=== PATIENT | female | born 1995 | race Caucasian/White ===

== ENCOUNTER → 2022-11-05 14:04 | Outpatient (BNVA) | payer OTHER, SELFPAY | PROVIDERS: Visit Provider Physician Assistant | DX: S93.401A Sprain of unspecified ligament of right ankle, initial encounter (principal); X50.1XXA Overexertion from prolonged static or awkward postures, initial encounter | CPT/HCPCS: 99204 ==

== ENCOUNTER → 2022-11-07 15:58 | Outpatient (BNVA) | payer OTHER, SELFPAY | PROVIDERS: Visit Provider Physician Assistant | DX: S93.401A Sprain of unspecified ligament of right ankle, initial encounter (principal); X50.3XXA Overexertion from repetitive movements, initial encounter | CPT/HCPCS: 99213 ==

== ENCOUNTER → 2022-11-13 09:51 | Outpatient (BNVA) | payer OTHER, SELFPAY | PROVIDERS: Visit Provider Physician Assistant | DX: S93.401A Sprain of unspecified ligament of right ankle, initial encounter (principal); X50.1XXA Overexertion from prolonged static or awkward postures, initial encounter | CPT/HCPCS: 99214 ==

== ENCOUNTER → 2022-11-20 09:04 | Outpatient (BNVA) | payer OTHER, SELFPAY | PROVIDERS: Visit Provider Physician Assistant | DX: S93.401D Sprain of unspecified ligament of right ankle, subsequent encounter (principal); X50.1XXD Overexertion from prolonged static or awkward postures, subsequent encounter | CPT/HCPCS: 99213 ==

== ENCOUNTER → 2022-12-05 13:03 | Outpatient (BNVA) | payer OTHER, SELFPAY | PROVIDERS: Visit Provider Physician Assistant | DX: S93.401D Sprain of unspecified ligament of right ankle, subsequent encounter (principal); X50.1XXD Overexertion from prolonged static or awkward postures, subsequent encounter | CPT/HCPCS: 99215 ==

== ENCOUNTER → 2023-08-27 12:46 | Outpatient (BNVA) | payer OTHER, SELFPAY | PROVIDERS: Visit Provider Physician Assistant Medical | DX: S63.633A Sprain of interphalangeal joint of left middle finger, initial encounter (principal); X50.3XXA Overexertion from repetitive movements, initial encounter | CPT/HCPCS: 73140; 99204 ==

== ENCOUNTER → 2023-09-01 11:39 | Outpatient (BNVA) | payer OTHER, SELFPAY | PROVIDERS: Visit Provider Physician Assistant Medical | DX: S63.633A Sprain of interphalangeal joint of left middle finger, initial encounter (principal); X50.3XXA Overexertion from repetitive movements, initial encounter | CPT/HCPCS: 99213 ==

== ENCOUNTER → 2023-09-14 14:07 | Outpatient (BNVA) | payer OTHER, SELFPAY | PROVIDERS: Visit Provider Physician Assistant Medical | DX: S63.633D Sprain of interphalangeal joint of left middle finger, subsequent encounter (principal); S63.502D Unspecified sprain of left wrist, subsequent encounter; X50.3XXD Overexertion from repetitive movements, subsequent encounter | CPT/HCPCS: 99213 ==

== ENCOUNTER → 2023-09-28 13:59 | Outpatient (BNVA) | payer OTHER, SELFPAY | PROVIDERS: Visit Provider Physician Assistant Medical | DX: S63.633D Sprain of interphalangeal joint of left middle finger, subsequent encounter (principal); S63.502D Unspecified sprain of left wrist, subsequent encounter; X50.3XXD Overexertion from repetitive movements, subsequent encounter | CPT/HCPCS: 99213 ==

== ENCOUNTER 2023-09-28 15:30 | Outpatient (RCR) | payer OTHER, SELFPAY | END 2023-11-23 11:46 | disposition home or self-care (01) | LOC: HO.OT 15:30 | PROVIDERS: Visit Provider Physician Assistant Medical | DX: S63.613D Unspecified sprain of left middle finger, subsequent encounter (principal) | CPT/HCPCS: 97110; 97165; 97760 ==

== ENCOUNTER 2024-01-08 10:02 | Outpatient (AMB) | payer OTHER, SELFPAY ==
--- NOTE | 2024-01-08 10:17 | MHC.PC.OV ---
Vital Signs 01/08/24 10:26 Height 5 ft 9 in Weight 201 lb 6 oz BMI 29.7 BP 92/54 L Blood Pressure Location Lt brachial Position Sitting Respiration 16 Pulse 101 H Pulse Source Pulse Oximeter Temp 94.5 F L Temp Source Temporal Artery Scan Pulse Oximetry (%) 99 Oxygen Delivery Method Room Air Intake Visit Reasons: Est Care / Depression Intake Note: establish care Is last menstrual period known: Yes Last menstrual period: 12/24/23 Post menopausal: No Patient : No Allergies Penicillins Allergy (Intermediate, Verified 01/08/24 10:20) Anaphylaxis Medication List - Last Reconciled 01/08/24 by Randell Peterson MD amitriptyline 50 mg PO BEDTIME chlordiazepoxide-clidinium 5-2.5 mg 2 caps PO BID esomeprazole magnesium (Nexium) 20 mg PO DAILY ibuprofen 800 mg PO TID L norgest/e.estradiol-e.estrad 0.15 mg-30 mcg (84)/10 mcg (7) (Simpesse) 1 tab PO DAILY simethicone (Gas-X Extra Strength) 250 mg PO BID PRN Tobacco use date assessed: 01/08/24 Dental Screening Dental Screen Date: 01/08/24 Did you have a dental visit in the last 12 months?: Yes Did you have a dental problem in the last 6 months where you did not have access to dental care?: No Was dental information given to patient?: Patient has dentist HPI Est Care / Depression HPI Details New Patient? ?? Prior PCP:?Dr Jami Cheng at [facility] Last office visit/CPE:? Last Summer Acute issue(s):? IBS Anxiety R Knee injury and in Brace. Has f/u w/ ortho in [place]. ?? PMHx:? Anxiety. Mesenteric Lymphadenitis & abd pain. IBS sees Dr Jordan. Endometriosis - Needs referral. SurgHx:?Tonsils. [place] teeth FHx:? Mom: GI problems, Thyroid problems. Thyroid CA Dad: DM2, a-Fib. SocHx:? Nonsmoker, EtOH: None. 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 1. Little interest or pleasure in doing things: several days 2. Feeling down, depressed, or hopeless: several days 3. Trouble falling or staying asleep, or sleeping too much: several days 4. Feeling tired or having little energy: several days 5. Poor appetite or overeating: several days 6. Feeling bad about yourself - or that you are a failure or have let yourself or your family down: several days 7. Trouble concentrating on things, such as reading the newspaper or watching television: several days 8. Moving or speaking so slowly that other people could have noticed. Or the opposite - being so fidgety or restless that you have been moving around a lot more than usual: not at all 9. Thoughts that you would be better off or of hurting yourself in some way: not at all Total score: 7 Depression Screening Interpretation: Positive Depression Screening Done: Yes 50206 - PHQ-9 Billing: Yes Source: Developed by Drs. Abhi Rosas, Ashley Ochoa, Leon Abebe and colleagues, with an educational nancy from [employer]. Thrive Questionnaire Date Thrive assessed: 01/08/24 I am a: Patient What is your living situation today?: I have a steady place to live Within the past 12 months, did the food you bought not last and you didn't have the money to get more?: I choose not to answer this question Within the past 12 months, did you worry whether your food would run out before you got money to buy more?: Never true Do you have trouble paying for medicines?: No Do you have trouble getting transportation to medical appointments?: No Do you have trouble paying your heating and electricity bill?: I choose not to answer this question Do you have trouble taking care of your child, family member or friend?: I choose not to answer this question Do you have trouble with day-to-day activities such as bathing, preparing meals, shopping, managing finances, etc.?: No Are you currently unemployed and looking for a job?: No Are you interested in more education?: I choose not to answer this question Please select the resources that you would like help with: None Currently or been in a relationship where the following occur: I choose not to answer THRIVE Score: 0 AUDIT C Alcohol Use Questionnaire (AUDIT-C) 1. How often do you have a drink containing alcohol?: Never 3. How often do you have six or more drinks on one occasion?: Never Total Score: 0 AIDEN-7 AMB Questionnaire AIDEN-7 Date AIDEN - 7 assessed: 01/08/24 Feeling nervous, anxious, or on edge: 1 = Several days Not being able to stop or control worryin = Several days Worrying too much about different things: 1 = Several days Trouble relaxin = Several days Being so restless that it is hard to sit still: 1 = Several days Becoming easily annoyed or irritable: 1 = Several days Feeling afraid as if something awful might happen: 1 = Several days Total AIDEN-7 score (0-4 normal; 5-9 mild; 10-14 moderate; 15-21 severe): 7 Source: Developed by Drs. Abhi Rosas, Ashley Ochoa, Leon Abebe and colleagues, with an educational nancy from [employer]. AIDEN-7 Assessment Billing AIDEN-7 Assessment Tool: AIDEN-7 Assessment 49916 Review of Systems Const Denies chills, Denies fatigue, Denies fever(s), Denies headache(s) and Denies weakness ENT Denies dizziness and Denies headache(s) Card Denies chest pain, Denies lightheadedness, Denies dyspnea and Denies other (Palpitations) Resp Denies cough, Denies dyspnea, Denies wheezing and Denies other ( shortness of breath) Musc Denies numbness and Denies tingling Neuro Denies dizziness, Denies headache(s), Denies numbness, Denies tingling, Denies paresthesias and Denies weakness Psych Denies anxiety and Denies depression Endo Denies fatigue Aller/Immun Denies wheezing Physical exam (Primary Care) Vital Signs: Last Vital Signs Temp 94.5 F L 01/08/24 10:26 Pulse 101 H 01/08/24 10:26 Resp 16 01/08/24 10:26 BP 92/54 L 01/08/24 10:26 Pulse Ox 99 01/08/24 10:26 Oxygen Delivery Method Room Air 01/08/24 10:26 BMI result Body Mass Index 29.7 Tobacco/Smoking Status: Tobacco use Status Tobacco use date assessed 01/08/24 01/08/24 10:28 Patient Tobacco Use Status Never used Tobacco 01/08/24 10:28 e-Cigarette/Vaping Use Never Used 01/08/24 10:28 PHQ-9: PHQ-9 Score PHQ-9: Total score 7 01/08/24 10:36 Depression Screening Interpretation: Positive Thrive Assessment: Date of Thrive Assessment Date Thrive assessed 01/08/24 01/08/24 10:28 Currently or been in a relationship where the following occur: I choose not to answer Const General: no acute distress and well developed Nutritional Appearance: well nourished Orientation/consciousness: patient oriented x3 HENMT Head: Yes normocephalic and Yes atraumatic Eyes General: appearance normal, both eyes and all related structures Pupils: Equal, round and reactive pupils present EOM: EOMs intact bilaterally Resp Effort & Inspection: normal respiratory effort Auscultation: clear to auscultation bilaterally Cardio Rate: regular rate Rhythm: regular rhythm Heart sounds: S1 normal heart sound present, S2 normal heart sound present, no gallops, no murmurs and no rubs Neuro General: patient oriented x3 and gait normal Cranial nerves: Yes Equal, round and reactive pupils present Psych Affect: normal affect Coding Level of Care Code New Pt Level 3 (56137) Diagnoses Depression with anxiety F41.8 Weight gain R63.5 Abdominal pain R10.9 IBS (irritable bowel syndrome) K58.9 Mesenteric lymphadenitis I88.0 Endometriosis N80.9 Laboratory exam ordered as part of routine general medical examination Z00.00 Additional Codes AIDEN-7 Assessment Billing - AIDEN-7 Assessment Tool: AIDEN-7 Assessment 56606 ([id number]) Assessment & Plan Assessment & Plan (1) Depression with anxiety: Code(s): F41.8 - Other specified anxiety disorders Category: Medical Plan: Patient?has?a?therapist?and?currently?on?amitriptyline She?would?like?to?try?Paxil?and?we?will?start?with?a?small?dose. Denies?current?SI?with?any?plan?but?says?she?has?had intrusive?thoughts?or?SI?in?the?past.??She?contracts?for?safety Follow-up?with?therapist I?will?see?her?back?in?a?month?to?follow-up?on?medication?management?with?Paxil (2) Weight gain: Code(s): R63.5 - Abnormal weight gain Category: Medical Plan: We?can?monitor (3) Abdominal pain: Code(s): R10.9 - Unspecified abdominal pain Category: Medical Plan: Chronic?abdominal?pain?and?IBS Recommended?good?hydration?and?trial?of?FiberCon/soluble?fiber Follow-up?with?watch caser (4) IBS (irritable bowel syndrome): Code(s): K58.9 - Irritable bowel syndrome, unspecified Category: Medical Plan: As?above,?follow-up?with?Gastroenterology (5) Mesenteric lymphadenitis: Code(s): I88.0 - Nonspecific mesenteric lymphadenitis Category: Medical Plan: Patient?is?treated?by?her?watch caser?for?abdominal?pain Follow-up?with?GI (6) Endometriosis: Code(s): N80.9 - Endometriosis, unspecified Category: Medical Plan: 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 Referred?to?electrician rectifier maintenance (7) Laboratory exam ordered as part of routine general medical examination: Code(s): Z00.00 - Encounter for general adult medical examination without abnormal findings Category: Medical Plan: Check?labs Orders: Orders Microalbumin, Random (w Creat) Today I10 - Essential (primary) hypertension UA and rflx microscopic Today Z00.00 - Encounter for general adult medical examination without abnormal findings HIV Ab/Ag Today Z11.3 - Encounter for screening for infections with a predominantly sexual mode of transmission Vitamin B12 and Folate Today E53.8 - Deficiency of other specified B group vitamins Vitamin D 25-OH Total Today E55.9 - Vitamin D deficiency, unspecified Comprehensive [place]. Panel Fast Today Z00.00 - Encounter for general adult medical examination without abnormal findings Complete Blood Count Auto Diff Today Z00.00 - Encounter for general adult medical examination without abnormal findings Lipid Panel Today Z00.00 - Encounter for general adult medical examination without abnormal findings TSH reflex Free T4 Today Z00.00 - Encounter for general adult medical examination without abnormal findings CT NG by PCR Today Z11.3 - Encounter for screening for infections with a predominantly sexual mode of transmission Hepatitis B,C Profile Today Z11.3 - Encounter for screening for infections with a predominantly sexual mode of transmission Syphilis Screen Today Z11.3 - Encounter for screening for infections with a predominantly sexual mode of transmission Referrals [employer] Referral N80.9 - Endometriosis, unspecified Medications: New paroxetine HCl 10 mg PO DAILY 30 days 30 tabs 2RF calcium polycarbophil (FiberCon) 625 mg PO DAILY 30 days 30 tabs 2RF L norgest/e.estradiol-e.estrad 0.15 mg-30 mcg (84)/10 mcg (7) (Simpesse) 1 tab PO DAILY 182 ea 2RF
[2024-01-08 10:26] VITALS: BP 92/54; PULSE 101; RESP 16; TEMP 34.7; O2SAT 99; BMI 29.7
== END 2024-01-08 11:16 | disposition home or self-care (01) ==
LOC: HO.HMCFM 10:03
PROVIDERS: Visit Provider Family Medicine
DX: F41.8 Other specified anxiety disorders (principal); R63.5 Abnormal weight gain; R10.9 Unspecified abdominal pain; K58.9 Irritable bowel syndrome, unspecified; I88.0 Nonspecific mesenteric lymphadenitis; N80.9 Endometriosis, unspecified; Z00.00 Encounter for general adult medical examination without abnormal findings

== ENCOUNTER → 2024-01-08 10:02 | Outpatient (BNVA) | payer OTHER, SELFPAY | PROVIDERS: Visit Provider Family Medicine | DX: F41.8 Other specified anxiety disorders (principal); R63.5 Abnormal weight gain; R10.9 Unspecified abdominal pain; K58.9 Irritable bowel syndrome, unspecified; I88.0 Nonspecific mesenteric lymphadenitis; N80.9 Endometriosis, unspecified; Z79.899 Other long term (current) drug therapy | CPT/HCPCS: 96127 ==

== ENCOUNTER 2024-01-18 15:07 | Outpatient (REF) | payer OTHER, SELFPAY ==
[2024-01-18 15:58] LABS: MANUAL DIFF FLAG NO
[2024-01-18 16:10] LABS: Basophils Percent Auto 0.3 % (0-2); Eosinophils Absolute Auto 0.1 X10*3/uL (0.0-0.4); Eosinophils Percent Auto 2.2 % (0-4); Hematocrit 35.3 % (37.0-47.0); Hemoglobin 11.6 g/dl (12.0-16.0); Imm Gran Abs Auto 0.01 X10*3/uL (0.00-0.03); Imm Gran Pct Auto 0.2 % (0.0-0.4); Lymphocytes Absolute Auto 2.2 X10*3/uL (1.2-4.9); Lymphocytes Percent Auto 35.2 % (20-40); Mean Corpuscular HGB Conc 32.9 g/dl (31.0-35.0); Mean Corpuscular Hemoglobin 28.8 pg (27.0-33.0); Mean Corpuscular Volume 87.6 fL (80.0-98.0); Mean Platelet Volume 11.6 fL (9.4-12.3); Monocytes Absolute Auto 0.4 X10*3/uL (0.1-1.2); Monocytes Percent Auto 6.2 % (2-11); Neutrophils Absolute Auto 3.5 x10*3/uL (2.0-8.3); Neutrophils Percent Auto 55.9 % (45-73); Platelet Count 262 X10*3/uL (160-400); Red Blood Count 4.03 X10*6/uL (4.20-5.50); Red Cell Distribution Width 12.8 % (11.0-16.0); White Blood Count 6.3 X10*3/uL (4.8-10.8)
[2024-01-18 16:57] LABS: Alanine Aminotransferase 27 U/L (0-31); Albumin Level 3.6 g/dL (3.5-5.0); Alkaline Phosphatase 79 U/L (39-117); Anion Gap 12 (12-20); Aspartate Amino Transferase 26 U/L (5-31); Bilirubin Total 0.7 mg/dL (0.0-1.0); Blood Urea Nitrogen 6 mg/dL (9-16); Calcium 8.6 mg/dL (8.4-10.2); Carbon Dioxide 23 mmol/L (22-29); Chloride 106 mmol/L (96-108); Cholesterol 154 mg/dL (<200); Estimated Glomerular Filt Rate > 60; Glucose Fasting 83 mg/dL (60-99); HDL Cholesterol 39 mg/dL (>40); LDL Cholesterol Calculated 104 mg/dL (<100); Potassium 3.9 mmol/L (3.3-5.1); Sodium 137 mmol/L (135-145); TSH reflex Free T4 1.66 uIU/mL (0.32-4.0); Total Protein 6.6 g/dL (6.5-8.0); Triglycerides 57 mg/dL (<150); Vitamin D 25-OH Total 37.4 ng/mL (>30)
[2024-01-18 17:17] LABS: Folate 13.9 ng/mL (> or = 4.0); Vitamin B12 272 pg/mL (200-900)
[2024-01-19 08:15] LABS: HBS Num1 6.45 mIU/mL (0-7.99); HBc Num1 0.26 S/CO (0.00-0.79); HBsAGNum1 0.38 S/CO (0.00-0.99); HIV AB/AG Nonreactive (Nonreactive); HIV Num 1 0.05 S/CO (0.00-0.99); Hepatitis B Core Antibody Nonreactive (Nonreactive); Hepatitis B Surface Antigen Negative (Negative); ~HepC Num1 0.36 S/CO (0.00-0.79); ~Hepatitis B Surface Antibody NONREACTIVE (Nonreactive); ~Hepatitis C Antibody Nonreactive (Nonreactive)
[2024-01-19 08:26] LABS: Syphilis Screen Nonreactive (Nonreactive)
== END 2024-01-18 15:08 | disposition home or self-care (01) ==
LOC: HO.HMGCLDS 15:07
PROVIDERS: PCP Family Medicine; Visit Provider Family Medicine
DX: Z00.00 Encounter for general adult medical examination without abnormal findings (principal); E53.8 Deficiency of other specified B group vitamins; Z11.3 Encounter for screening for infections with a predominantly sexual mode of transmission; E55.9 Vitamin D deficiency, unspecified
CPT/HCPCS: 36415; 80053; 80061; 82306; 82607; 82746; 84443; 85025; 86704; 86706; 86780; 86803; 87340; 87389

== ENCOUNTER → 2024-06-21 10:12 | Outpatient (BNVA) | payer OTHER, SELFPAY | PROVIDERS: PCP Family Medicine; Visit Provider Physician Assistant Medical | DX: S63.501A Unspecified sprain of right wrist, initial encounter (principal); X50.3XXA Overexertion from repetitive movements, initial encounter | CPT/HCPCS: 99202 ==

== ENCOUNTER → 2024-06-30 13:50 | Outpatient (BNVA) | payer OTHER, SELFPAY | PROVIDERS: PCP Family Medicine; Visit Provider Physician Assistant Medical | DX: S63.501A Unspecified sprain of right wrist, initial encounter (principal); X50.3XXA Overexertion from repetitive movements, initial encounter | CPT/HCPCS: 99213 ==

== ENCOUNTER → 2024-07-11 13:15 | Outpatient (BNVA) | payer OTHER, SELFPAY | PROVIDERS: PCP Family Medicine; Visit Provider Physician Assistant Medical | DX: M65.4 Radial styloid tenosynovitis [de Quervain] (principal) | CPT/HCPCS: 99213 ==

== ENCOUNTER → 2024-07-25 14:52 | Outpatient (BNVA) | payer OTHER, SELFPAY | PROVIDERS: PCP Family Medicine; Visit Provider Physician Assistant Medical | DX: M65.4 Radial styloid tenosynovitis [de Quervain] (principal); Z02.79 Encounter for issue of other medical certificate | CPT/HCPCS: 99213 ==

== ENCOUNTER 2024-08-16 15:00 | Outpatient (RCR) | payer OTHER, SELFPAY ==
--- NOTE | 2024-08-18 10:49 | MHC.OT.DC ---
[address] [phone] F: [phone] Occupational Therapy Discharge Note Patient Name: Deonna Jacques Provider: Georgia Herrera Diagnosis: (R)wrist pain Date of Surgery: Date of Evaluation: 07/11/24 Date of Discharge: Treatments to Date: 8 Cancellations to Date: No Shows to Date: Discharge Status: Achieved Goals Improved Function Independent with HEP Discharge Summary: Patient is d/c'd from skilled OT as she achieved all of her ST and LT goals. Patient was a pleasure to work with. Electronically Signed By: Yolanda Hampton OTR/L, CLT Reviewed/agree with student documentation: Therapist: Please Sign and return to therapist, thank you for your referral.
== END 2024-08-18 10:49 | disposition home or self-care (01) ==
LOC: HO.OT 15:00
PROVIDERS: PCP Family Medicine; Visit Provider Physician Assistant Medical
DX: S69.91XD Unspecified injury of right wrist, hand and finger(s), subsequent encounter (principal)
CPT/HCPCS: 97035; 97110; 97140; 97165; 97535

== ENCOUNTER 2025-03-03 13:51 | Outpatient (AMB) | payer OTHER, SELFPAY ==
--- OUTSIDE RECORDS SUMMARY | 2025-03-03 13:54 | XMS_ITS | Data Portability ---
Author Organization CLYDE Roberson [facility] [address] Address [address] [place] [address] Assessment Encounter Date Assessment Date Assessment LastModified by Organization Details LastModified Time 10/06/2023 10/06/2023 you are being seen for a middle finger sprain Please apply a joan tape to middle and index finger take ibuprofen, use ice and gentle stretching see pcp if symptoms are worse if you have any tingling and numbness, seek immediate care in the ER [email or web address] Not available 10/06/2023 18:24:38 Plan of Treatment Reminders Order Date Submit Date Provider Last Modified By Organization Details Last Modified Time Details Appointments None recorded. 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 Procedures None recorded. Surgeries None recorded. Imaging None recorded. Medication Orders None recorded. Patient TargetsNo targets recorded. Patient Instructions Encounter Date Encounter Id Patient Instructions Last Modified By Organization Details Last Modified Time 01/26/2023 [id number] coronavirus (covid-19): care instructions [email or web address] Not available 01/26/2023 12:19:39 Coronavirus (COVID-19) in Children: Care Instructions [email or web address] Not available 01/26/2023 12:19:39 Based on your Presentation and Exam you are being diagnosed with a viral upper respiratory track infection Your rapid Flu and SARS-cov tests were negative your condition is caused by a virus that can be highly contagious. If you have any family member that have been exposed they typically will start to show symptoms in 48-72 hours. You are considered contagious for 5 Days after the start of the fever. You should isolate and not go to work, sports, events during this quarantine period. The following are my recommendations to help with your symptoms while your body fights this infection: 1. Take Ibuprofen or Tylenol if you do not have any allergies to these medications. If you take a blood thinner you should not take NSAIDS like Ibuprofen. These medication will help with the inflammation in your respiratory tract which should help the cough. 2. Do not take any decongestants at this time because this will dry out that tract too much. If you have a lot of nasal congestion you can try nasal decongestants, but I would not take them more than 5 days. 3. Use a humidifier or add a cup of water by your bed. Sometimes if our sleeping environment is too dry this can lead to cough 4. Salt Water Gargles 5. Saline nasal spray is helpful. 6. Would recommend taking a antihistamine to help with the congestion. 7. Clean Surfaces regularly and try to stay isolated from family members. I would be seen again if you develop any of the following. 1. Cough develops last longer than 3 weeks. 2. Develop shortness of breath or wheezing. 3. Severe Headache with vision changes 4. Stiff Neck 5. Fever does not reduce a few points with Ibuprofen or Tylenol. I would go immediately to the Emergency Room if you develop: 1. Chest Pain 2. Severe Shortness of breath 3. Coughing up Blood. [email or web address] Not available 01/26/2023 12:20:39 Reason for Referral None Reported. Results Created Date Observation Date Name Description Value Unit Range Abnormal Flag Note LastModifiedBy Organization Detail LastModifiedTime 01/27/20 23 01/27/2023 SARS- COV-2 , PRISCA sars-cov-2, PRISCA NOT DETECT ED not detect ed This nucle ic acid ampli ficat ion test was klaudia klein and its perfo rmanc e sky cteri stics deter mined by Dials rp Labor atori es. Nucle ic acid ampli ficat ion tests inclu de RT-PC R and TMA. This test has not been FDA clear ed or appro yaima. This test has been autho rized by FDA under an Emerg ency Use Autho rizat ion (EUA) . This test is only autho rized for the durat ion of time the decla ratio n that circu mstan maricarmen exist justi fying the autho rizat ion of the emerg ency use of in vitro diagn ostic tests for detec tion of SARS- CoV-2 virus and/o r diagn osis of COVID -19 infec tion under secti on 564(b )(1) of the Act, 21 U.S.C . 360bb b-3(b ) (1), unles s the autho rizat ion is termi nated or revok ed soone r. When diagn ostic testi ng is negat mary, the possi bilit y of a false negat mary resul t shoul d be consi dered in the anika xt of a patie nt's recen t expos ures and the prese nce of clini yulissa signs and sympt oms consi stent with COVID -19. An indiv idual witho ut sympt oms of COVID -19 and who is not geraldine ing SARS- CoV-2 virus would expec t to have a negat mary (not detec gina) resul t in this assay . Not Available [facility] [address] [facility], [place], [address], 01/27/2023 18:05:56 01/27/20 23 01/26/2023 rapid flu (A+B) Unknown Analyte negati ve Not Available [address], [address], 01/26/2023 11:30:36 01/27/20 23 01/26/2023 rapid flu (A+B) Unknown Analyte negati ve Not Available brynn [address] [place], [address], 01/26/2023 11:30:36 Result Notes None recorded. Problems Name Problem SNOMED Code Status Onset Date Resolution Date Notes Provider Name and Address Organization Details Recorded Time Gastrointes tinal hemorrhage 78645627 Active 2023 Nadeen Joseph ricci, [place] - [facility] 4 17:52:10 Pain in finger of left hand 9401473433328 05 Active 2023 OJ WHITLEY NP [address] [facility] , [facility] [place], [address], [place] - [facility] 4 18:18:08 Sprain of ligament of finger of left hand 1570263686176 9103 Active 2023 OJ WHITLEY NP [address] , [place], [address], [place] - [facility] 4 18:18:37 Problem Notes None recorded. Procedures Surgical History Date Name Laterality Status Provider Name and Address Organization Details Recorded Time extraction of wisdom tooth completed PHILLIP OKEEFE PA - [facility] 01/26/2023 11:35:50 tonsillectomy completed PHILLIP OKEEFE PA - [facility] 01/26/2023 11:35:58 Imaging Results None recorded. Procedure Notes None recorded. Medical Equipment None Reported. Allergies Allergen ID Allergen Name Allergen Category Reaction Reaction Severity Criticality Documentation Date Start Date Code Code System Note Provider Name and Address Organization Details Recorded Time 333966 Product containin g penicilli n (product) medicatio n Not available Not available Not available 01/26/2023 92687 8001 SNOMED PHILLIP ricci, PA - [facility] 3 11:30:52 Medications Name Sig Start Date Stop Date Status Note LastModified by Organization Details LastModified Time azithromycin 250 mg tablet 01/26 completed Not Available Not Available Not Available ibuprofen 800 mg tablet 01/26 completed Not Available Not Available Not Available amitriptyline 50 mg tablet active Not Available Not Available Not Available oxycodone-navarro taminophen 5 mg-325 mg tablet TAKE 1 TABLET BY MOUTH EVERY 6 HOURS NEEDED FOR SEVERE PAIN SCALE 7-10 01/26 completed Not Available Not Available Not Available methocarbamol 750 mg tablet TAKE 1 TABLET BY MOUTH EVERY 6 HOURS 01/26 completed Not Available Not Available Not Available sertraline 25 mg tablet 01/26 completed Not Available Not Available Not Available chlordiazepox johnathan-clidinium 5 mg-2.5 mg capsule active Not Available Not Available Not Available naproxen 500 mg tablet TAKE 1 TABLET BY MOUTH TWICE A DAY 01/26 completed Not Available Not Available Not Available escitalopram 5 mg tablet 01/26 completed Not Available Not Available Not Available Daysee 0.15 mg-30 mcg (84)/10 mcg(7) tablets,3 month dose pack active Not Available Not Available Not Available Vitals Date Recorded Body height Body mass index (BMI) Body weight Pain severity - 0-10 verbal numeric rating [Score] - Reported Oxygen saturation Heart rate Respiratory rate Body temperature Systolic And Diastolic Provider Name and Address Organization Details Last Updated DateTime 4 172.72 cm 30.4 kg/m2 25638.4 7 g 4 99 % 86 /min 18 /min 97.2 [degF] 122/78 mm[Hg] Nadeen Ruiz PA - [facility] 4 17:53:08 Date Recorded Body height Body mass index (BMI) Body weight Respiratory rate Body temperature Oxygen saturation Heart rate Systolic And Diastolic Provider Name and Address Organization Details Last Updated DateTime 3 172.72 cm 30.1 kg/m2 47340.2 9 g 16 /min 98.6 [degF] 99 % 87 /min 119/76 mm[Hg] PHILLIP OKEEFE PA - [facility] 3 11:39:50 Social History Question Answer Notes LastModified by Organization D etails LastModified Time Have You Recently Traveled Abroad? No [email or web address] Information not available 01/26/2023 Sex: Unknown Functional Status Question Answer Note LastModified by Organizat ion Details LastModified Time Do you use any illicit or recreational drugs? No [email or web address] Information not available 01/26/2023 Do you or have you ever used any other forms of tobacco or nicotine? No Information not available 01/26/2023 What is your level of alcohol consumption? None [email or web address] Information not available 01/26/2023 Mental Status None recorded. Family History Relationship Description Onset Age of this Age Resolved Age Notes LastModified by Organization Details LastModified Time Mother Hypertensive disorder [email or web address] Not available 2022 11:36:39 Father Atrial fibrillation [email or web address] Not available 11:37:49 Medical History Condition Response Gout N Cancer, liver N Thyroid disorder N Hyperthyroidism N Rheumatoid arthritis N GI bleeding N Irritable bowel syndrome Y COPD N Depression N Tinnitus, unspecified ear N Pneumonia N Cancer, uterus N Mental disorder, NOS N Headaches/Migraines N Insomia N Alzheimer's disease N Anxiety Disorder N Obesity N Arthritis N Cancer N Stroke N Alcohol abuse N Liver disease N Allergy Food/Medication N Cancer, bladder N Peripheral artery disease N Oxygen dependence N Fibromyalgia N Atrial fibrillation N Tinnitus, right ear N Kidney Disease N Deep vein thrombosis DVT leg N Migraine N Disorder of circulatory system N Anxiety N Cancer, brain N Disease of pancreas N Cancer, lung N Eating disorder, unspecified N Cancer, colon N Crohn's disease N Cancer, cervical N N Cancer, breast N Cancer, skin N Coagulation defect, unspecified N Cataract N Asthma N Congestive heart failure (CHF) N Substance Abuse N Vertigo N Coronary artery disease N Pulmonary Embolism N Cancer, pancreas N Tobacco use disorder N Disease of lung N Allergic rhinitis N Joint disorder, unspecified N Menopause N Back disorder N Drug dependence, unspecified N Hypothyroidism N Disorder kidney N Sickle Cell Anemia N Cancer, ovarian N Medina's Palsy N Disorder of eye N Cancer, prostate N Allergy Seasonal N Disorder of lymph system N Disorder of urinary system N Drug abuse N Radiculopathy, site unspecified N Myoneural disorder, unspecified N Nervous system disorder N ADHD N High Cholesterol N Post-herpetic neuralgia N Aneurysm, cerebral N Tinnitus, left ear N Prostate hypertrophy, benign N Disorder of skin/subcutaneous N Osteoarthritis N Disorder of ear N Ovarian cysts N Parkinson's disease N Low back pain N Carpal tunnel syndrome N Anemia N Disorder of muscle N Kidney stone N Bipolar affective disorder N Leukemia, unspecified N Diabetes N Disorder involving the immune mechanism N Endocrine disorder N Seizure N Hyperlipidemia N Eczema N Emphysema, unspecified N Lymphoma N Dementia N Diverticulitis N Lupus N Seizure disorder N Reflux/GERD N Sleep Apnea N Cancer, bone N Cardiac arrhythmia, unspecified N Disorder of thyroid N Disorder of bone N Heart Disease N Disorder of brain N Liver Disorder N Aneurysm, aortic N Hypertension N Osteoporosis N Disease of digestive system, unspecified N Gastroesophageal reflux (GERD) Y Gynecological History Statement/Question Response Date of LMP 10/06/2023 Is there any chance of ? No LMP Approximate Obstetrics History GPAL:G 0 P 0 0 0 0 Past Encounters Encounter ID Performer Location Encounter Start Date Encounter Closed Date Diagnosis/Indication Diagnosis SNOMED-CT Code Diagnosis ICD10 Code Diagnosis IMO Codes Diagnosis Note [id number] [facility] [address] [place] [address] 02/10/2017 11:48:58 02/10/2017 13:21:16 [id number] [place] [address] [place] [address] 01/26/2023 10:17:32 01/26/2023 12:33:42 Upper respiratory infection 54738074 J06.9 [id number] CLYDE SORENSEN [address] [place] [address] 10/06/2023 17:45:43 10/06/2023 18:20:24 Pain in finger of left hand 5030650093 08028 M79.645 Sprain of ligament of finger of left hand 4555250115 8709586 S63.613A Health Concerns Section Related Observation LastModified by Organization Detai ls LastModified Time None Recorded Concern Status LastModified by Organization Details LastModified Time None Recorded Advance Directives Directive None Recorded Payers Insurance Date Sequence Insurance Name Policy Number Policy Lobo Covered Member ID Lobo Member ID Guarantor Name 01/26/2023 1 [email or web address] (INDEMNITY) [id number] Deonna Remillard [id number] Deonna Yousifillard 10/06/2023 1 [facility] [id number] Deonna Wood Remillard [id number] Deonnaroman Yousifillargreg Notes Date Note Type Note Provider Name and Address Organization Details Recorded Time 01/26/2023 text/html Sinus Complaints UCReported by PatientHPIFor location, patient reportssinus pain,facial pain, andsinus pressure. For associated symptoms, patient reportsnasal discharge from __ nostrilsandpost nasal dripbut reportsno fever,no difficulty breathing,no nausea or vomiting,no sore throat,no nasal passage blockage,no ear fullness, andno cough. For quality, patient reportsworsening. For context, patient reportsrecent sick contacts. For severity, patient reportsmoderate. For risk factors, patient reportsno current smoking or tobacco use. For alleviating factors, patient reportsotc meds ibuprophen. For aggravating factors, patient reportsnothing makes it worse. For prior treatment, patient reportsoral decongestant. COVID-19 SymptomsReported by Patient pt. states sore throat, pressure headache, fatigue , body aches since yesterday. pt. has had covid 3 or 4 times. wants to be tested before holiday company. pt. took rapid covid test at home this morning with negative results. Liliana Castelan NP [address] [place], [address], [employer] 01/26/2023 12:40:20 10/06/2023 text/html Finger PainRepor gina by PatientHistoryFor location, patient reportsproximal phalanxandmiddle phalanxbut reportslocation: leftandmiddle finger. For source of patient information, patient reportssource of patient information patient.Neurovascular StatusFor neurovascular status, patient reportsno numbness or tingling.SymptomsFor symptoms, patient reportspain with rom. left hand middle finger painpai had a middle finger injury in augustha a negative xraywent to therapy, but pt re injured finger todayhas mild discomfort. No trauma, pt states that aggravated finger OJ WHITLEY NP [address] [place], [address], [place] [facility] 10/06/2023 18:24:43 OBGyn Episode No OBEpisode recorded.
--- OUTSIDE RECORDS SUMMARY | 2025-03-03 13:54 | XMS_ITS | Clinical Summary ---
Author Organization [facility] Address [address] [address] [place] [address] Phone Care Team Providers Care Women Designer Name Role Phone Tory Castro MD Unavailable [phone] Pcp, Unknown Primary Care Provider Unavailabl e Allergies Active Allergy Reactions Criticality Noted Date Comments Penicillins Hives,Throat Tightness,Swelling High Medications amitriptyline (ELAVIL) 50 MG tablet Take 50 mg by mouth nightly at bedtime. Active clidinium-chlor diazePOXIDE (LIBRAX) 5-2.5 mg per capsule Take by mouth 4 (four) times a day before meals and nightly. Active esomeprazole (NEXIUM) 20 MG capsule Take 20 mg by mouth daily before breakfast. Active simethicone 250 mg Cap Take 250 mg by mouth 4 (four) times a day. Active DAYSEE 0.15 mg-30 mcg (84)/10 mcg (7) 3MPk Take 1 tablet by mouth daily. 05/06/2021 Active MULTIVITAMIN ORAL Take by mouth. Active mv-min/vit C/glut/lysine/h b124 (IMMUNE SUPPORT ORAL) Take by mouth. Active thiamine HCl (VITAMIN B-1 ORAL) Take 100 mg by mouth 2 (two) times a day. Active Active Problems Problem Noted Date Diagnosed Date Anxiety and depression 09/10/2022 Assessment & Plan (09/10/2022 4:52 PM EDT): Discussion with the patient about starting an SSRI for depression and anxiety. We see that she is on the Elavil at 50 mg so this is almost an add-on to the aged antidepressant. She should be mindful that the sertraline can increase suicidal ideation before it starts working on depression so she should be mindful to call us if she is having worse thoughts in that regard. Start 25 mg for 10 days then double up to 50 mg every morning. We will rewrite the prescription and follow-up with her in 2 months. If side effects are intolerable we can take it back down to 25 mg or off. Then we would find something else. Lexapro would be a good alternative. These options were discussed with the patient, she was counseled not to stop it abruptly once up to 50 mg. Closed fracture of tooth with delayed healing Assessment & Plan (2021 11:48 PM EDT): Patient scheduled for wisdom teeth removal in January [place] teeth reportedly broken down Also with fam hx clotting disorder Dentist requesting testing to ensure no clotting issues for surgery Will order lab tests to further evaluate this Family history of bleeding or clotting disorder 2021 Assessment & Plan (2021 11:49 PM EDT): Will check labs as discussed Backache 07/18/2021 Assessment & Plan (07/19/2021 12:10 PM EDT): Suspect this is Muscloskeletal, no overt focal neurological deficits. Discussed and educ patient re nature of the disease and possible treatment Modalities. Prn OTC analgesics PT as discussed today Irritable bowel syndrome 07/18/2021 Assessment & Plan (07/19/2021 12:07 PM EDT): So sorry about your continued issues with this Follow up, as discussed, with Dr. Torres Cervicalgia 07/18/2021 Assessment & Plan (07/19/2021 12:10 PM EDT): Glad this is better Gastroesophageal reflux disease without esophagi tis 07/18/2021 Assessment & Plan (07/19/2021 12:07 PM EDT): Continue Nexium Follow up with Dr. Torres given persistant symptoms Screening for viral and chlamydial diseases 07/07 Immunizations Immunization Administration Dates Next Due DTaP 12/15/2002, 9,07/10/1997,05/04,02/10/1997 SSR-[id number] FORMULATION 02/28/2009 HPV,quadrivalent 10/16/2014,10/10/2013, 3 Hepatitis A, Unspecified 09/15/2011 Hepatitis A, pediatric, unsp ecified formulation 06/11/2010 Hepatitis B, unspecified formulation 10/13/1997, 01/13/1997,1996 Hib, unspecified formulation 03/27/1998, 07/10/1997,05/04/1997,02/10 IPV 12/15/2002, 9,05/04/1997,02/10 Influenza, whole 02/28/2009 MMR 04/13/2001,03/27/1998 Meningococcal ACWY, unspecif ied formulation 10/10/2013,12/19/2009 Pneumococcal, Unspecified Formulation 09/30/2019 Tdap 12/19/2009 Varicella 10/20/2006,12/20/1998 Family History Medical History Relation Comments Heart attack Maternal Grandfather Heart attack Paternal Cousin Heart attack Paternal Grandfather Relation Status Comments Maternal Grandfather Paternal Cousin Alive Paternal Grandfather Social History Tobacco Use Types Packs/Day Years Used Date Smoking Tobacco: Never Smokeless Tobacco: Never Tobacco Cessation:Counseling Given: Not Answered Alcohol Use Standard Drinks/Week Comments Never 0 (1 standard drink = 0.6 oz pur e alcohol) Education Answer Date Recorded Are you interested in more education? Not on deepthi e 07/04/2022 Are you concerned about learning? Not on file 07/04/2022 No 07/04/2022 No 07/04/2022 Food Answer Date Recorded Within the past 6 months we worried whether our food would run out before we got money to buy more. Never True 10/18/2024 Within the past 6 months the food we bought just didn't last and we didn't have enough money to get more. Never True Residential Stability Answer Date Recor ded What is your housing situation today? I have rafael cartwright 10/18/2024 How many times have you move d in the past 12 months? Zero (I did not move) 10/18/2024 Paying for Meds Answer Date Recorded Do you have trouble paying for medicines? No 10/18/2024 Paying Utility Bills Answer Date Record ed Do you have trouble paying your heating or elect ricity bill? No 10/18/2024 Transportation Answer Date Recorded Has the lack of transportati on kept you from medical appointments or from getting medications? No 10/18/2024 Digital Access Answer Date Recorded No 10/18/2024 Yes 10/18/2024 Do you have reliable internet access at home? Ye s 10/18/2024 Do you have a device (e.g., phone, tablet, computer) with a working camera? Yes 10/18/2024 Intimate Partner Violence Answer Date R ecorded Are you denied basic needs s uch as food, clothing, or medical care? No 10/18/2024 In the past 12 months have y ou been in a relationship with a person who hurts, threatens, or tries to control you? No 10/18/2024 Are you denied basic needs s uch as food, clothing, or medical care? No 10/18/2024 In the past 12 months have y ou been in a relationship with a person who hurts, threatens, or tries to control you? No 10/18/2024 Comments No Sex and Gender Information Value Date Recorded Sex Assigned at Female 05/20/2019 9:12 AM EDT Legal Sex Female 8:51 AM EDT Gender Identity Female 05/20/2019 9:12 AM EDT Sexual Orientation Choose not to disclose 2019 9:12 AM EDT Last Filed Vital Signs Vital Sign Reading Time Taken Comments Blood Pressure 103/69 10/18/2024 10:23 PM EDT Pulse 78 10/18/2024 10:23 PM EDT Temperature 36.8 C (98.2 F) 10/18/2024 10:23 PM EDT Respiratory Rate 18 10/18/2024 10:23 PM EDT Oxygen Saturation 98% 10/18/2024 10:23 PM EDT Inhaled Oxygen Concentration - - Weight 92.5 kg (204 lb) 10/18/2024 4:44 PM EDT Height 172.7 cm (5' 8 ) 10/18/2024 4:44 PM EDT Body Mass Index 31.02 10/18/2024 4:44 PM EDT Plan of Treatment Health Maintenance Due Date Last Done Comments HEPATITIS C SCREENING 2014 HIV ONE-TIME SCREENING (18-65 YEARS) 2014 PAP SMEAR 2017 Adult Td,Tdap Booster 12/20/2019 12/19/2009 DEPRESSION SCREENING 09/11/2023 09/10/2022, 09/11/19 23 INFLUENZA VACCINE (#1) 2024 02/28/2009, 2008 COVID-19 VACCINE (2024- season) 2024 HIB VACCINES Completed 03/27/1998, 06/1997, 05/04/1997, Additional history exists HEPATITIS A VACCINES Completed 09/15/2011, 06/12/19 11 MENINGOCOCCAL VACCINES (ACWY) Completed 10/10/2013, 12/19/2009 PNEUMOCOCCAL VACCINES (0-49 years) Aged Out 09/30/2019 No longer eligible based on patient's age to complete this topic SMOKING STATUS SCREENING (Once After 26 Yrs) Completed 02/01/2024 MENINGOCOCCAL VACCINES (B) Aged Out N o longer eligible based on patient's age to complete this topic Medical Devices Not on file Insurance [facility] O [facility] Address[facility] [address] [address] [facility] Care Teams Women Designer Relationship Specialty Start Date End Date Pcp, Unknown PCP - General 10/18/24 Tory Castro MD [address] [address] Obstetrics and Gynecology 07/18/21 Additional Source Comments The information contained in this document represents components of the legal health record. It is not the complete legal health record.[facility]
--- OUTSIDE RECORDS SUMMARY | 2025-03-03 13:54 | XMS_ITS | Encounter Summary ---
Author Organization [facility] Address [address] [facility] [address] [place] [id number] Phone Care Team Providers Care Accounting Professional Name Role Phone Tory Castro MD Unavailable [phone] Abner Abraham MD Primary Care Provider [phone] Pcp, Unknown Primary Care Provider Unavailabl e Encounter Details Date Type Department Care Team (Late st Contact Info) Description 01/03/2024 Procedure Pass [facility], Ct Scan - [address] [address] Social History Tobacco Use Types Packs/Day Years Used Date Smoking Tobacco: Never Smokeless Tobacco: Never Alcohol Use Standard Drinks/Week Comments Never 0 (1 standard drink = 0.6 oz pur e alcohol) Education Answer Date Recorded Are you interested in more education? Not on deepthi e 07/04/2022 Are you concerned about learning? Not on file 07/04/2022 No 07/04/2022 No 07/04/2022 Digital Access Answer Date Recorded No 08/05/2022 No 08/05/2022 Reliable internet access at home? Not on file 08/05/2022 Device with a working camera? Not on file Intimate Partner Violence Answer Date R ecorded Are you denied basic needs s uch as food, clothing, or medical care? No 01/03/2024 In the past 12 months have y ou been in a relationship with a person who hurts, threatens, or tries to control you? No 01/03/2024 Are you denied basic needs s uch as food, clothing, or medical care? No 01/03/2024 In the past 12 months have y ou been in a relationship with a person who hurts, threatens, or tries to control you? No 01/03/2024 Comments No Sex and Gender Information Value Date Recorded Sex Assigned at Female 05/20/2019 9:12 AM EDT Legal Sex Female 8:51 AM EDT Gender Identity Female 05/20/2019 9:12 AM EDT Sexual Orientation Choose not to disclose 2019 9:12 AM EDT documented as of this encounter Plan of Treatment Not on file documented as of this encounter Visit Diagnoses Not on filedocumented in this encounter Additional Health Concerns Assessment Noted Time PHQ-9 Depression Total Score: 15 023 4:16 PM EDT PHQ-2 Depression Total Score: 5 09/11/19 23 4:16 PM EDT documented as of this encounter Care Teams Accounting Professional Relationship Specialty Start Date End Date Abner Abraham MD [address] [place] [phone] [email or web address] PCP - General Internal Medicine 11/13/22 10/17/24 Pcp, Unknown PCP - General 10/18/24 Tory Castro MD [address] [place] [id number] Obstetrics and Gynecology 07/18/21 documented as of this encounter Additional Source Comments The information contained in this document represents components of the legal health record. It is not the complete legal health record.[facility]
--- OUTSIDE RECORDS SUMMARY | 2025-03-03 13:54 | XMS_ITS | Encounter Summary ---
Author Organization [facility] Address [address] [place] [address] [place] [phone] Phone Care Team Providers Care Tar Boiler Name Role Phone Jami Cheng MD Primary Care Provider [phone] Tory Castro MD Unavailable [phone] Abner Abraham MD Primary Care Provider [phone] Pcp, Unknown Primary Care Provider Unavailabl e Encounter Details Date Type Department Care Team (Late st Contact Info) Description 09/15/2022 Procedure Pass [facility], Ct Scan - [address] [id number] Social History Tobacco Use Types Packs/Day Years [...] with a working camera? Not on file Comments No Sex and Gender Information Value [...] documented as of this encounter Care Teams Tar Boiler Relationship Specialty Start Date End Date Jami Cheng MD [email or web address] PCP - General Internal Medicine 05/20/19 11/12/22 Abner Abraham MD [address] [place] [phone] [email or web address] PCP - General Internal Medicine 11/13/22 10/17/24 Pcp, Unknown PCP - General 10/18/24 Tory Castro MD [address] [place] [phone] Obstetrics and Gynecology 07/18/21 documented as of this encounter Additional Source Comments The information contained in this document represents components of the legal health record. It is not the complete legal health record.[facility]
--- OUTSIDE RECORDS SUMMARY | 2025-03-03 13:54 | XMS_ITS | Clinical Summary ---
Author Organization [address] [place] [address] Address [address] [place] [address] Phone Care Team Providers Care Stock Worker Name Role Phone Randell Peterson MD Primary Care Provider Allergies Active Allergy Reactions Criticality Noted Date Comments Penicillins Hives High 01/26/2022 Medications Daysee 0.15 mg-30 mcg (84)/10 mcg (7) per tablet 09/30/2024 Active methocarbamoL (ROBAXIN) 750 mg tablet Take 1 tablet (750 mg total) by mouth. 01/26/2022 Active chlordiazePOXID E-clidinium (LIBRAX) 5-2.5 mg per capsuleIndicati ons:Irritable bowel syndrome (IBS) Take 1 capsule by mouth 4 (four) times a day (before meals and nightly). Take with meals and at bedtime 120 capsule 3 01/09/2025 Active amitriptyline (ELAVIL) 50 mg tabletIndicatio ns:Irritable bowel syndrome (IBS) Take 1 tablet (50 mg total) by mouth at bedtime. at bedtime. 90 each 3 01/12/2025 6 Active Encounters Date Type Department Care Team Description 01/09/2025 9:00 AM EST Office Visit Gastroenterology - [address] [facility] [address] [facility] [address] [place] [address] Jennifer Álvarez NP Irritable bowel syndrome, unspecified type (Primary Dx); Irritable bowel syndrome (IBS) 01/09/2025 Telephone Gastroenterology [facility] [address] [facility] [address] [facility] [address] [place] [address] Jennifer Álvarez NP from Last 3 Months Social History Tobacco Use Types Packs/Day Years Used Date Smoking Tobacco: Never Assessed Comments Unknown Sex and Gender Information Value Date Recorded Sex Assigned at Not on file Legal Sex Female 4:14 AM EST Gender Identity Not on file Sexual Orientation Not on file Last Filed Vital Signs Vital Sign Reading Time Taken Comments Blood Pressure 138/80 01/09/2025 8:57 AM EST Pulse 90 01/09/2025 8:57 AM EST Temperature - - Respiratory Rate - - Oxygen Saturation 96% 01/09/2025 8:57 AM EST Inhaled Oxygen Concentration - - Weight 95 kg (209 lb 6.4 oz) 01/09/2025 8:57 AM EST Height 172.7 cm (5' 8 ) 01/09/2025 8:57 AM EST Body Mass Index 31.84 01/09/2025 8:57 AM EST Plan of Treatment Health Maintenance Due Date Last Done Comments DTaP,Tdap,and Td Vaccines (1 - Tdap) 12/09/2015 Hepatitis B Vaccines (1 of 3 - 19+ 3-dose series) 12/09/2015 Cervical Cancer Screening: P ap Smear 2017 HIV Screening 04/07/2023 Hepatitis C Screening 04/07/2023 Social Influencers of Health Screening 04/07/2023 HPV Vaccines (1 - 3-dose SCD M series) 12/09/2023 Depression Screening 03/09/2024 COVID-19 Vaccine (1 - 2024-2 6 season) 2024 Influenza Vaccine (#1) 2024 RSV Immunization Adult Patie nts (1 - 1-dose 75+ series) 12/09/2071 Pneumococcal Vaccine: Pediat rics (0 to 5 Years) and At-Risk Patients (6 to 49 Years) Aged Out 09/30/2019 No longer eligi ble based on patient's age to complete this topic HIB Vaccines Aged Out No longer eligi ble based on patient's age to complete this topic Hepatitis A Vaccines Aged Out No long er eligible based on patient's age to complete this topic IPV Vaccines Aged Out No longer eligi ble based on patient's age to complete this topic MMR Vaccines Aged Out No longer eligi ble based on patient's age to complete this topic Meningococcal ACWY Vaccine Aged Out N o longer eligible based on patient's age to complete this topic Meningococcal B Vaccine Aged Out No l onger eligible based on patient's age to complete this topic RSV Immunization Patients Un sneha 20 months Aged Out No longer eligible b ased on patient's age to complete this topic Varicella Vaccines Aged Out No longer eligible based on patient's age to complete this topic Insurance [facility] ELAINE LOAIZA [address] [place] [address] Care Teams Stock Worker Relationship Specialty Start Date End Date Randell Peterson MD [address] [place] [address] [address] [place] PCP - General Family Medicine 10/10/24
--- NOTE | 2025-03-03 14:02 | MHC.PC.OV ---
Vital Signs 03/03/25 14:09 Height 5 ft 8 in Weight 208 lb BMI 31.6 BP 116/62 Blood Pressure Location Rt brachial Position Sitting Respiration 15 Pulse 95 Pulse Source Pulse Oximeter Temp 98.4 F Temp Source Temporal Artery Scan Pulse Oximetry (%) 96 Oxygen Delivery Method Room Air Intake Visit Reasons: return visit /f/u anxiety/depression Intake Note: Deonna presents in the office today to follow up to anxiety and depression. Zigzag Machine Operator Required: No Is last menstrual period known: Yes Last menstrual period: 02/22/25 Post menopausal: No Patient : No Allergies Penicillins Allergy (Intermediate, Verified 03/03/25 14:05) Anaphylaxis Medication List - Last Reconciled 03/03/25 by Randell Peterson MD amitriptyline 50 mg PO BEDTIME chlordiazepoxide-clidinium 5-2.5 mg 2 caps PO QID esomeprazole magnesium (Nexium) 20 mg PO DAILY ibuprofen 800 mg PO TID L norgest/e.estradiol-e.estrad 0.15 mg-30 mcg (84)/10 mcg (7) (Simpesse) 1 tab PO DAILY multivitamin 1 tab PO DAILY simethicone (Gas-X Extra Strength) 250 mg PO BID PRN Tobacco use date assessed: 03/03/25 Dental Screening Dental Screen Date: 03/03/25 Did you have a dental visit in the last 12 months?: No Did you have a dental problem in the last 6 months where you did not have access to dental care?: No Was dental information given to patient?: Patient declined HPI return visit /f/u anxiety/depression HPI Details 29 y/o female presents to f/u anxiety/depression. No longer on paroxetine 10mg for her mood. PHQ-9 4, AIDEN-7 6 today. Has been seeing a therapist for her mood. Had labs drawn last year. Mild anemia. Pt notes she was being followed by a GI group at [place] for IBS but pt notes her specialist is moving her practice to [place]. HPI Comments History of Present Illness Details Documentation assistance for Randell Peterson MD, was provided by Carlitos Vigil,? [employer] Structure As[employer]er on 03/03/2025 at 2:40 PM EST. I, Dr. Peterson, have read, observed, and verified documentation. 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 1. Little interest or pleasure in doing things: several days 2. Feeling down, depressed, or hopeless: several days 3. Trouble falling or staying asleep, or sleeping too much: nearly every day 4. Feeling tired or having little energy: nearly every day 5. Poor appetite or overeating: nearly every day 6. Feeling bad about yourself - or that you are a failure or have let yourself or your family down: several days 7. Trouble concentrating on things, such as reading the newspaper or watching television: several days 8. Moving or speaking so slowly that other people could have noticed. Or the opposite - being so fidgety or restless that you have been moving around a lot more than usual: not at all 9. Thoughts that you would be better off or of hurting yourself in some way: not at all Total score: 13 Depression Screening Interpretation: Positive Depression Screening Done: Yes [address]148 - PHQ-9 Billing: Yes Source: Developed by Drs. Abhi Rosas, Ashley Ochoa, Leon Abebe and colleagues, with an educational nancy from [employer]. Thrive Questionnaire Date Thrive assessed: 01/07/24 I am a: Patient What is your living situation today?: I have a steady place to live Within the past 12 months, did the food you bought not last and you didn't have the money to get more?: I choose not to answer this question Within the past 12 months, did you worry whether your food would run out before you got money to buy more?: I choose not to answer this question Do you have trouble paying for medicines?: I choose not to answer this question Do you have trouble getting transportation to medical appointments?: No Do you have trouble paying your heating and electricity bill?: No Do you have trouble taking care of your child, family member or friend?: No Do you have trouble with day-to-day activities such as bathing, preparing meals, shopping, managing finances, etc.?: No Are you currently unemployed and looking for a job?: No Are you interested in more education?: No Please select the resources that you would like help with: None Currently or been in a relationship where the following occur: No concerns reported THRIVE Score: 0 AUDIT C Alcohol Use Questionnaire (AUDIT-C) 1. How often do you have a drink containing alcohol?: Never Total Score: 0 AIDEN-7 AMB Questionnaire AIDEN-7 Date AIDEN - 7 assessed: 01/08/24 Feeling nervous, anxious, or on edge: 1 = Several days Not being able to stop or control worryin = Several days Worrying too much about different things: 1 = Several days Trouble relaxin = Several days Being so restless that it is hard to sit still: 0 = Not at all Becoming easily annoyed or irritable: 2 = More than half the days Feeling afraid as if something awful might happen: 1 = Several days Total AIDEN-7 score (0-4 normal; 5-9 mild; 10-14 moderate; 15-21 severe): 7 Source: Developed by Drs. Abhi Rosas, Ashely Ochoa, Leon Abebe and colleagues, with an educational nancy from [employer]. AIDEN-7 Assessment Billing AIDEN-7 Assessment Tool: AIDEN-7 Assessment 96430 Review of Systems Const Denies chills, Denies fatigue, Denies fever(s), Denies headache(s) and Denies weakness ENT Denies dizziness and Denies headache(s) Card Denies dyspnea Resp Denies cough, Denies dyspnea, Denies wheezing and Denies other (shortness of breath) Musc Denies numbness and Denies tingling Neuro Denies dizziness, Denies headache(s), Denies numbness, Denies tingling and Denies weakness Psych Reports anxiety and Reports depression Endo Denies fatigue Aller/Immun Denies wheezing Physical exam (Primary Care) Vital Signs: Last Vital Signs Temp 98.4 F 03/03/25 14:09 Pulse 95 03/03/25 14:09 Resp 15 03/03/25 14:09 BP 116/62 03/03/25 14:09 Pulse Ox 96 03/03/25 14:09 Oxygen Delivery Method Room Air 03/03/25 14:09 BMI result Body Mass Index 31.6 Tobacco/Smoking Status: Tobacco use Status Tobacco use date assessed 03/03/25 03/03/25 14:12 Patient Tobacco Use Status Never used Tobacco 03/03/25 14:09 e-Cigarette/Vaping Use Never Used 03/03/25 14:09 PHQ-9: PHQ-9 Score PHQ-9: Total score 4 03/03/25 14:16 Depression Screening Interpretation: Positive Thrive Assessment: Date of Thrive Assessment Date Thrive assessed 01/07/24 03/03/25 14:03 Currently or been in a relationship where the following occur: No concerns reported Const General: well developed; No acute distress Nutritional Appearance: well nourished Orientation/consciousness: patient oriented x3 HENMT Head: Yes normocephalic and Yes atraumatic Eyes General: appearance normal, both eyes and all related structures Pupils: Equal, round and reactive pupils present EOM: EOMs intact bilaterally Resp Effort & Inspection: normal respiratory effort Neuro General: patient oriented x3 and gait normal Cranial nerves: Yes Equal, round and reactive pupils present Psych Affect: normal affect Coding Level of Care Code Est Pt Level 4 (57075) Diagnoses Depression with anxiety F41.8 IBS (irritable bowel syndrome) K58.9 Mild anemia D64.9 Hyperlipidemia E78.5 Additional Codes AIDEN-7 Assessment Billing - AIDEN-7 Assessment Tool: AIDEN-7 Assessment 15308 ([id number]) PHQ-9 - 79755 - PHQ-9 Billing: Yes ([id number]) Assessment & Plan Assessment & Plan (1) Depression with anxiety: Code(s): F41.8 - Other specified anxiety disorders Category: Medical Plan: Patient presents to discuss medication management for her anxiety/depression as well as GI symptoms. History of IBS and anxiety with depression. She says that [facility] though I do not see any mention of this in the [place] prescriber database [employer]. Patient says that her chief marketing officer is planning on moving to [place] and that she has not been able to get a hold of her regarding refills. Will request notes from her chief marketing officer. Will make a referral to [facility] gastro[facility]ology. Patient may keep her prior gastroenterology practice if she prefers. Requesting notes. Referring patient to [facility] outpatient psychiatric consult team to discuss current medication regimen. (2) IBS (irritable bowel syndrome): Code(s): K58.9 - Irritable bowel syndrome, unspecified Category: Medical Plan: As above, referred to GI (3) Mild anemia: Code(s): D64.9 - Anemia, unspecified Category: Medical Plan: Mild. Repeat labs (4) Hyperlipidemia: Code(s): E78.5 - Hyperlipidemia, unspecified Category: Medical Plan: Mildly elevated LDL cholesterol and mildly low HDL at last measurement. Patient notes that she has been exercising more lately. Will recheck this with next blood draw Orders: Orders Lipid Panel Today Z00.00 - Encounter for general adult medical examination without abnormal findings Comprehensive [place]. Panel Fast Today Z00.00 - Encounter for general adult medical examination without abnormal findings Complete Blood Count Auto Diff Today Z00.00 - Encounter for general adult medical examination without abnormal findings Microalbumin, Random (w Creat) Today I10 - Essential (primary) hypertension TSH reflex Free T4 Today Z00.00 - Encounter for general adult medical examination without abnormal findings UA CC w/rflx Micro + Cult Today Z00.00 - Encounter for general adult medical examination without abnormal findings Referrals Psychiatry Outpatient Consultation Service F41.8 - Other specified anxiety disorders Gastroenterology Referral K58.9 - Irritable bowel syndrome, unspecified, R10.9 - Unspecified abdominal pain
[2025-03-03 14:09] VITALS: BP 116/62; PULSE 95; RESP 15; TEMP 36.9; O2SAT 96; BMI 31.6
== END 2025-03-03 14:40 | disposition home or self-care (01) ==
LOC: HO.HMCFM 13:52
PROVIDERS: PCP Family Medicine; Visit Provider Family Medicine
DX: F41.8 Other specified anxiety disorders (principal); K58.9 Irritable bowel syndrome, unspecified; D64.9 Anemia, unspecified; E78.5 Hyperlipidemia, unspecified

== ENCOUNTER → 2025-03-03 13:51 | Outpatient (BNVA) | payer OTHER, SELFPAY | PROVIDERS: PCP Family Medicine; Visit Provider Family Medicine | DX: F41.8 Other specified anxiety disorders (principal); K58.9 Irritable bowel syndrome, unspecified; D64.9 Anemia, unspecified; E78.5 Hyperlipidemia, unspecified | CPT/HCPCS: 96127 ==